=== PATIENT | female | born 1985 | race Caucasian/White ===

== ENCOUNTER 2016-12-13 10:25 | Day surgery (SDC) | payer BC, OTHER ==
[2016-12-13] VITALS (13 sets, daily range): BP systolic 128–154; BP diastolic 56–82; PULSE 73–102; RESP 15–26; Ht 167.6 cm; Wt 125.4 kg
[~2016-12-13] VITALS: Ht 167.6 cm; Wt 125.4 kg
--- NOTE | 2016-12-13 14:23 | PDOCDIS ---
Discharge Instructions CONDITION Patient Condition: Good HOME CARE INSTRUCTIONS: Diet Instructions: Regular ACTIVITY: Activity Restrictions: No Restrictions No Sexual Activity Bathing Restrictions: Shower FOLLOW UP/APPOINTMENTS Appointments Appointment office in 1 week NYLA LUNSFORD MD December 13, 2016 14:23
[2016-12-13] MEDS ORDERED: KETOROLAC 30 MG INJ IV PRN (14:30)
[2016-12-13] MEDS ORDERED: IBUPROFEN 600 MG TAB PO PRN (14:30)
[2016-12-13] MEDS ORDERED: CEFAZOLIN 1 GM INJ ONE (14:33)
--- NOTE | 2016-12-13 15:52 | OPR ---
DATE OF OPERATION: 12/13/2016 PREOPERATIVE DIAGNOSES: Menometrorrhagia (dysfunctional uterine bleeding). POSTOPERATIVE DIAGNOSIS: Pending pathology report. PROCEDURE PERFORMED: Diagnostic curettage. SURGEON: Nyla Saldaña MD ANESTHESIA: Spinal. ANESTHESIOLOGIST: Mukesh Bran MD DETAILS OF THE PROCEDURE: Under satisfactory spinal anesthesia, the patient was prepped and draped and placed in dorsal lithotomy position. Bimanual pelvic examination: Normal marital introitus, no rmal vagina, cervix nulliparous, uterus normal size, adnexa not palpable. Weighted speculum introdu emma into the vagina. Anterior cervical lip grasped by Giorgio tenaculum. Uterine cavity sounded, srinivasan sured 9 cm. Cervical dilatation further advanced with the Sebastián dilator and endometrial curetting us ing small sharp curette starting at 12 o'clock counterclockwise. Scant to moderate amount of tissue was obtained, which was submitted to pathology. Estimated blood loss less than 5 mL. The patient tolerated the procedure well. Transferred to recovery room in a good condition. Dictated By: NYLA PUENTES/NTS Conf#: [id number] DID#: [id number]
== END 2016-12-13 17:56 | disposition home or self-care (01) ==
LOC: SDS 10:25
PROVIDERS: ATTEND Obstetrics & Gynecology
DX: N92.0 Excessive and frequent menstruation with regular cycle (principal); E66.01 Morbid (severe) obesity due to excess calories; Z68.42 Body mass index [BMI] 45.0-49.9, adult
CPT/HCPCS: 58120; 84703; 86900; 86901; 88305; J0690; J1885; Z7512; Z7610